=== PATIENT | male | born 1985 | race Caucasian/White ===

== ENCOUNTER 2020-03-27 16:48 | Emergency (ER) | payer SELFPAY ==
[2020-03-27] MEDS ORDERED: Tetracaine HCl/PF 0.5% 4 ML Bottle EYEBOTH ONE (17:07)
--- NOTE | 2020-03-27 17:17 | EDM.PDOC ---
ED HPI GENERAL MEDICAL PROBLEM - General Chief Complaint: ENT Problem Stated Complaint: SOMETHING IN LT EYE Time Seen by Provider: 03/27/20 16:50 Source of Information: Reports: Patient History Limitations: Reports: No Limitations - History of Present Illness INITIAL COMMENTS - FREE TEXT/NARRATIVE: 34-year-old male no relevant past medical history presents for concern for forei gn body in left eye. Patient was cutting PVC pipe when a jj came out and hit him in the left eye. He noted great tearing from the eye and pain. He tried to rinse out the eye at home but was unable to get relief. Does not wear contact lenses Left Eye Pain Score (Numeric/FACES): 1 - Related Data Allergies Allergy/AdvReac Type Severity Reaction Status Date / Time No Known Allergies Allergy Verified 03/27/20 17:01 Home Meds: Home Meds . [No Known Home Meds] 03/27/20 [History] Past Medical History - Past Health History Medical/Surgical History: Denies Medical/Surgical History - Infectious Disease History Infectious Disease History: Reports: Chicken Pox Social & Family History - Tobacco Use Tobacco Use Status *Q: Never Tobacco User - Caffeine Use Caffeine Use: Reports: Coffee - Recreational Drug Use Recreational Drug Use: No ED ROS GENERAL - Review of Systems Review Of Systems: See Below ED EXAM, GENERAL - Physical Exam Exam: See Below Exam Limited By: No Limitations General Appearance: Alert, WD/WN, No Apparent Distress Eye Exam: Bilateral Eye: EOMI, PERRL, Other (no increased flourescene uptake, no FBs noted with eversion of eyelids, no FBs on eye itself, +scleral injection) Head: Atraumatic, Normocephalic Neck: Normal Inspection Respiratory/Chest: No Respiratory Distress, No Accessory Muscle Use Extremities: Normal Inspection Neurological: Normal Gait Psychiatric: Normal Affect, Normal Mood Skin Exam: Warm, Dry, Intact, Normal Color Course - Vital Signs Last Recorded V/S: Last Vital Signs Temp 97.6 F 03/27/20 17:01 Pulse 89 03/27/20 17:01 Resp 16 03/27/20 17:01 BP 121/81 03/27/20 17:01 Pulse Ox 97 03/27/20 17:01 - Orders/Labs/Meds Orders: Active Orders 24 hr Category Date Time Status Visual Acuity [Vision Test] [RC] ASDIRECTED Care 03/27/20 17:07 Active Meds: Medications Discontinued Medications Generic Name Dose Route Start Last Admin Trade Name Angella PRN Reason Stop Dose Admin Tetracaine HCl 1 ml 03/27/20 17:07 03/27/20 17:48 Tetracaine 0.5% Steri-Unit Caro EYEBOTH 03/27/20 17:08 1 applic ASDIRECTED ONE Administration - Re-Assessments/Exams Free Text/Narrative Re-Assessment/Exam: 03/27/20 17:31 No foreign bodies identified on physical exam. No increased uptake on fluo rescein exam. Patient's history is concerning for foreign body. The eyelids were everted without foreign bodies noted. Patient's pain is of course relieved with tetracaine. Will apply Dwight lens and irrigate the eye copiously. Will reassess 03/27/20 17:54 We will discharge patient with antibiotic drops and ophthalmology follow-up Departure - Departure Time of Disposition: 17:55 Disposition: Home, Self-Care 01 Condition: Good Clinical Impression: Foreign body in eye Qualifiers: Encounter type: initial encounter Laterality: left Qualified Code(s): T15.92XA - Foreign body on external eye, part unspecified, left eye, initial encounter - Discharge Information Referrals: PCP,None [Primary Care Provider] - Forms: ED Department Discharge Additional Instructions: The following information is given to patients seen in the emergency department who are being discharged to home. This information is to outline your options for follow-up care. We provide all patients seen in our emergency department with a follow-up referral. The need for follow-up, as well as the timing and circumstances, are variable depending upon the specifics of your emergency department visit. If you don't have a primary care physician on staff, we will provide you with a referral. We always advise you to contact your personal physician following an emergency department visit to inform them of the circumstance of the visit and for follow-up with them and/or the need for any referrals to a consulting specialist. The emergency department will also refer you to a specialist when appropriate. This referral assures that you have the opportunity for follow-up care with a specialist. All of these measure are taken in an effort to provide you with optimal care, which includes your follow-up. Under all circumstances we always encourage you to contact your private physician who remains a resource for coordinating your care. When calling for follow-up care, please make the office aware that this follow-up is from your recent emergency room visit. If for any reason you are refused follow-up, please contact the [facility] Emergency Department at and asked to speak to the emergency department charge nurse. Please follow up with an eye doctor, particularly if symptoms do not improve: Dr. Joaquín Smith MD [facility] [address] [facility] [address] [place] [address] Sepsis Event Note (ED) - Evaluation Sepsis Screening Result: No Definite Risk - Focused Exam Vital Signs: Vital Signs Temp Pulse Resp BP Pulse Ox 03/27/20 17:01 97.6 F 89 16 121/81 97
[2020-03-27] MEDS ORDERED: Erythromycin Base 0.5% Ophth Oint 1 GM Tube ONE (17:56)
[2020-03-27] MEDS ORDERED: Erythromycin Base 0.5% Ophth Oint 1 GM Tube EYELF ONE (18:00)
== END 2020-03-27 18:11 | disposition home or self-care (01) ==
LOC: MW.ED 16:48
DX: T15.92XA Foreign body on external eye, part unspecified, left eye, initial encounter (principal)
CPT/HCPCS: 99283; A9270; 99282